=== PATIENT | male | born 1980 | race Caucasian/White ===

== ENCOUNTER 2019-09-28 15:46 | Emergency (ER) | payer BC ==
[2019-09-28 15:52] VITALS: TEMP 97.9
[2019-09-28] MEDS ORDERED: SODIUM CHLORIDE 0.9% 500 ML 500 ML IV STA (16:16)
[2019-09-28] MEDS ORDERED: ASPIRIN 81 MG PO STA (16:16)
[2019-09-28 16:37] LABS: Basophils # (A) 0.1 k/uL (0-0.2); Basophils % (A) 1 %; Eosinophils # (A) 0.1 k/uL (0-0.7); Eosinophils % (A) 2 %; HCT 46.4 % (39.0-53.0); HGB 15.8 gm/dL (13.0-17.5); Lymphocytes # (A) 2.3 k/uL (1.0-4.8); Lymphocytes % (A) 27 %; MCH 28.7 pg (25.0-35.0); MCV 84.7 fL (80.0-100.0); Mean Platelet Volume 8.8; Monocytes # (A) 0.5 k/uL (0-1.0); Monocytes % (A) 6 %; Neutrophils # (A) 5.1 k/uL (1.3-7.7); Neutrophils % (A) 61 %; Platelet Count 189 k/uL (150-450); RBC 5.48 m/uL (4.30-5.90); RDW 12.6 % (11.5-15.5); WBC 8.3 k/uL (3.8-10.6)
--- NOTE | 2019-09-28 16:42 | CT ---
EXAMINATION TYPE: CT brain wo con DATE OF EXAM: 09/28/2019 COMPARISON: 10/24/2013 HISTORY: 38-year-old male weakness, hypertension, history of brain shunt TECHNIQUE: Examination was done in axial plane without intravenous contrast. Coronal and sagittal r econstructions performed. CT DLP: 1142.4 mGycm Automated exposure control for dose reduction was used. FINDINGS: There is no evidence of acute intracranial hemorrhage, acute ischemic changes, mass, mass-effect, or extra-axial fluid collection. There is no effacement of cerebral sulci or basal subarachnoid cister ns. There is no hydrocephalus. There is no midline shift. Mendoza-white matter distinction is preserv ed. Right frontal sagrario hole related to prior shunt catheter with underlying encephalomalacia along the fr ontal horn of the right lateral ventricle. Some linear calcifications along the left lateral wall of the third ventricle are unchanged from 2014 . Rightward nasal septal deviation. Visualized paranasal sinuses and mastoid air cells are well-pneumat ized. Orbits and globes are intact. IMPRESSION: 1. 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 No indwelling catheter remains but there is some residual encephalomalacia/gliosis along the catheter tract. 2. Ventricular system is relatively normal in caliber (improved from 2014). No acute intracranial abn ormality seen.
--- NOTE | 2019-09-28 16:43 | XR ---
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 Heart normal size. Aorta and pulmonary vasculature wi thin normal limits. No consolidation or pleural effusion. IMPRESSION: No acute cardiopulmonary process.
[2019-09-28 16:47] LABS: Partial Thromboplastin Time 25.4 sec (22.0-30.0); Prothrombin Time 10.8 sec (9.0-12.0)
[2019-09-28 16:58] LABS: ALT 27 U/L (4-49); AST 40 U/L (17-59); African American GFR (CKD) >90 (>60 ml/min/1.73 sqM); Alkaline Phosphatase 72 U/L (38-126); Anion Gap 10 mmol/L; Blood Urea Nitrogen 17 mg/dL (9-20); Calcium 9.6 mg/dL (8.4-10.2); Carbon Dioxide 25 mmol/L (22-30); Chloride 103 mmol/L (98-107); Glucose 78 mg/dL (74-99); Magnesium 2.1 mg/dL (1.6-2.3); Non-African American GFR(CKD) >90 (>60 ml/min/1.73 sqM); Sodium 138 mmol/L (137-145); Total Bilirubin 0.7 mg/dL (0.2-1.3); Total Protein 8.2 g/dL (6.3-8.2)
[2019-09-28 17:23] VITALS: RESP 18
--- NOTE | 2019-09-28 17:49 | ED ---
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 Denies any recent falls or trauma. Patient reports that he walks around at work, he feels as if when he is walking around his left side is more weak. He denies any facial droop or any changes in vision any headache. Denies any other complaints at this time. Systemic: Pt denies fatigue, fever/chills, rash. Pt denies weakness, night sweats, weight loss. Neuro: Pt denies headache, visual disturbances, syncope or pre-syncope. HEENT: Pt denies ocular discharge or irritation, otalgia, rhinorrhea, pharyngitis or notable lymphadenopathy. Cardiopulmonary: Pt denies chest pain, SOB, heart palpitations, dyspnea on exertion. Abdominal/GI: Pt denies abdominal pain, n/v/d. : Pt denies dysuria, burning w/ urination, frequency/urgency. Denies new onset urinary or bowel incontinence. MSK: Pt denies myalgia, loss of strength or function in extremities. - Related Data Home Medications Medication Instructions Recorded Confirmed Losartan [Cozaar] 12.5 mg PO HS 11/21/14 11/22/14 Previous Rx's Medication Instructions Recorded HYDROcodone/APAP 10-325MG [[place] 1 - 2 each PO Q6H PRN #60 tab 11/23/14 10-325] Verapamil Sr [Isoptin Sr] 360 mg PO DAILY tablet.er 11/23/14 Warfarin [Coumadin] 3 mg PO Q48H #10 tab 11/23/14 Allergies Allergy/AdvReac Type Severity Reaction Status Date / Time nafcillin Allergy Rash/Hives, Verified 09/28/19 15:52 itching vancomycin Allergy Rash/Hives, Verified 09/28/19 15:52 itching Review of Systems ROS Statement: Those systems with pertinent positive or pertinent negative responses have been documented in the HPI. ROS Other: All systems not noted in ROS Statement are negative. 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, had one seizure after first brain surgery-that was only time, ruptured left achilles on Tuesday-in [employer] History of Any Multi-Drug Resistant Organisms: None Reported Past Surgical History: Appendectomy Additional Past Surgical History / Comment(s): brain surgery to remove tumor, had shunt, multiple shunt revisions & then removal of shunt w/ventriculostomy 2013, SX- LT ACHILLES TENDON REPAIR Past Anesthesia/Blood Transfusion Reactions: No Reported Reaction Past Psychological History: No Psychological Hx Reported Smoking Status: Never smoker Past Alcohol Use History: None Reported Past Drug Use History: None Reported - Past Family History Mother Family Medical History: No Reported History General Exam - General Exam Comments Initial Comments: Constitutional: NAD, AOX3, Pt has pleasant affect. HEENT: NC/AT, trachea midline, neck supple, no lymphadenopathy. Posterior pharynx non erythematous, without exudates. External ears appear normal, without discharge. Mucous membranes moist. Eyes PERRLA, EOM intact. There is no scleral icterus. No pallor noted. Cardiopulmonary: RRR, no murmurs, rubs or gallops, no JVD noted. Lungs CTAB in anterior and posterior wright. No peripheral edema. Abdominal exam: Abdomen soft and non-distended. Abdomen non-tender to palpation in all 4 quadrants. Bowel sounds active in LLQ. No hepatosplenomegaly. No ecchymosis Neuro: CN II-XII intact. No nuchal rigidity. No raccon eyes, no vigil sign, no hemotympanum. No cervical spinal tenderness. Left upper and left lower extremity are 4/5 strength, right upper and lower extremities are 5 out of 5 strength. Sensation, is intact. NIH 0. MSK: No posterior calf tenderness bilaterally, homans sign negative bilaterally. Posterior tibialis and radial pulse +2 bilaterally. Sensation intact in upper and lower extremities. Full active ROM in upper and lower extremities, 5/5 stregnth. 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 Denies any recent falls or trauma. Patient reports that he walks around at work, he feels as if when he is walking around his left side is more weak. He denies any facial droop or any changes in vision any headache. Denies any other complaints at this time. Patient vital signs are stable, afebrile. Physical exam displayed: CN II-XII intact. No nuchal rigidity. No raccon eyes, no vigil sign, no hemotympanum. No cervical spinal tenderness. Left upper and left lower extremity are 4-5 strength, right upper and lower extremities are 5 out of 5 strength. Sensation, is intact. NIH 0. Laboratory investigations are non- impressive. Troponin negative. EKG is nonischemic. Chest x-ray displayed no acute cardiopulmonary process. 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 No acute intracranial abnormality. Symptoms of ongoing for greater than 48 hours. Patient was administered aspirin. Will be transferred to [facility] for neurology evaluation. Accepting physician Dr. Justin. Case discussed in depth with Dr. Marroquin. - Lab Data Result diagrams: 09/28/19 16:05 09/28/19 16:05 Lab Results 09/28/19 09/28/19 09/28/19 Range/Units 16:05 16:05 16:05 WBC 8.3 (3.8-10.6) k/uL RBC 5.48 (4.30-5.90) m/uL Hgb 15.8 (13.0-17.5) gm/dL Hct 46.4 (39.0-53.0) % MCV 84.7 (80.0-100.0) fL MCH 28.7 (25.0-35.0) pg MCHC 34.0 (31.0-37.0) g/dL RDW 12.6 (11.5-15.5) % Plt Count 189 (150-450) k/uL Neutrophils % 61 % Lymphocytes % 27 % Monocytes % 6 % Eosinophils % 2 % Basophils % 1 % Neutrophils # 5.1 (1.3-7.7) k/uL Lymphocytes # 2.3 (1.0-4.8) k/uL Monocytes # 0.5 (0-1.0) k/uL Eosinophils # 0.1 (0-0.7) k/uL Basophils # 0.1 (0-0.2) k/uL PT 10.8 (9.0-12.0) sec INR 1.0 (<1.2) APTT 25.4 (22.0-30.0) sec Sodium 138 (137-145) mmol/L Potassium 4.0 (3.5-5.1) mmol/L Chloride 103 (98-107) mmol/L Carbon Dioxide 25 (22-30) mmol/L Anion Gap 10 mmol/L BUN 17 (9-20) mg/dL Creatinine 0.89 (0.66-1.25) mg/dL Est GFR (CKD-EPI)AfAm >90 (>60 ml/min/1.73 sqM) Est GFR (CKD-EPI)NonAf >90 (>60 ml/min/1.73 sqM) Glucose 78 (74-99) mg/dL Calcium 9.6 (8.4-10.2) mg/dL Magnesium 2.1 (1.6-2.3) mg/dL Total Bilirubin 0.7 (0.2-1.3) mg/dL AST 40 (17-59) U/L ALT 27 (4-49) U/L Alkaline Phosphatase 72 (38-126) U/L Troponin I (0.000-0.034) ng/mL Total Protein 8.2 (6.3-8.2) g/dL Albumin 5.0 (3.5-5.0) g/dL 09/28/19 Range/Units 16:05 WBC (3.8-10.6) k/uL RBC (4.30-5.90) m/uL Hgb (13.0-17.5) gm/dL Hct (39.0-53.0) % MCV (80.0-100.0) fL MCH (25.0-35.0) pg MCHC (31.0-37.0) g/dL RDW (11.5-15.5) % Plt Count (150-450) k/uL Neutrophils % % Lymphocytes % % Monocytes % % Eosinophils % % Basophils % % Neutrophils # (1.3-7.7) k/uL Lymphocytes # (1.0-4.8) k/uL Monocytes # (0-1.0) k/uL Eosinophils # (0-0.7) k/uL Basophils # (0-0.2) k/uL PT (9.0-12.0) sec INR (<1.2) APTT (22.0-30.0) sec Sodium (137-145) mmol/L Potassium (3.5-5.1) mmol/L Chloride (98-107) mmol/L Carbon Dioxide (22-30) mmol/L Anion Gap mmol/L BUN (9-20) mg/dL Creatinine (0.66-1.25) mg/dL Est GFR (CKD-EPI)AfAm (>60 ml/min/1.73 sqM) Est GFR (CKD-EPI)NonAf (>60 ml/min/1.73 sqM) Glucose (74-99) mg/dL Calcium (8.4-10.2) mg/dL Magnesium (1.6-2.3) mg/dL Total Bilirubin (0.2-1.3) mg/dL AST (17-59) U/L ALT (4-49) U/L Alkaline Phosphatase (38-126) U/L Troponin I <0.012 (0.000-0.034) ng/mL Total Protein (6.3-8.2) g/dL Albumin (3.5-5.0) g/dL - EKG Data -: EKG Interpreted by Me (and Dr. Marroquin) EKG Comments: Ventricular rate 64, TN interval 148, QRS 96, QT/QTc 400/412. Normal sinus rhy thm, normal EKG. No concern for acute ischemia at this time. Disposition Clinical Impression: Unilateral weakness, Chest pain Disposition: OTHER INSTITUTION NOT DEFINED Condition: Fair Is patient prescribed a controlled substance at d/c from ED?: No Referrals: Mackenzie Estes DO [Primary Care Provider] - 1-2 days - Out of Hospital Transfer - Req. Specs Out of Hospital Transfer - Requested Specifics: Other Emergency Center ([facility])
[2019-09-28 18:23] VITALS: BP 134/94; PULSE 64
== END 2019-09-28 19:20 | disposition other institution (70) ==
LOC: EC 15:46
DX: R07.9 Chest pain, unspecified (principal); R53.1 Weakness; R20.2 Paresthesia of skin; I10 Essential (primary) hypertension; Z79.899 Other long term (current) drug therapy; Z88.1 Allergy status to other antibiotic agents
CPT/HCPCS: 36415; 70450; 71046; 80053; 83735; 84484; 85025; 85610; 85730; 93005; 96360; 96361; 99285

== ENCOUNTER 2020-08-04 07:53 | Day surgery (SDC) | payer BC ==
[2020-08-04] MEDS ORDERED: diazePAM 5 MG TAB PO STA (08:37)
[2020-08-04 08:56] VITALS: RESP 16; TEMP 98
--- NOTE | 2020-08-04 10:06 | FL ---
EXAMINATION TYPE: FL guided lumbar puncture LP DATE OF EXAM: 08/04/2020 COMPARISON: NONE HISTORY: G40.909 R51.9 Informed consent was obtained and all the patient's questions were answered. The L4-5 level was local ized fluoroscopically. The standard sterile technique. FINDINGS: 40 sec fluoro time. with Dr Vogel. 4 vials with 1 cc in each. Opening pressure of 12 mmH g. The patient tolerated the procedure well and left the department in stable condition. IMPRESSION: As Above.
[2020-08-04 13:18] LABS: Appearance,CSF Clear; CSF Tube Number 1
[2020-08-04 13:19] LABS: Nucleated Cells, CSF 1 u/L (0-5); Red Blood Cell,CSF 0 u/L (0-10)
[2020-08-04 13:22] VITALS: BP 121/65; PULSE 57
== END 2020-08-04 13:27 | disposition home or self-care (01) ==
LOC: RADPROMAIN 07:53
PROVIDERS: ATTEND Family Medicine
DX: R51.9 Headache, unspecified (principal); Q85.9 Phakomatosis, unspecified; G40.109 Localization-related (focal) (partial) symptomatic epilepsy and epileptic syndromes with simple partial seizures, not intractable, without status epilepticus; I10 Essential (primary) hypertension; Z79.891 Long term (current) use of opiate analgesic; Z79.899 Other long term (current) drug therapy; Z88.1 Allergy status to other antibiotic agents
CPT/HCPCS: 62328; 87070; 87205; 88108; 89050

== ENCOUNTER 2020-08-07 17:51 | Emergency (ER) | payer BC ==
[2020-08-07 18:06] VITALS: TEMP 97.9
[2020-08-07] MEDS ORDERED: KETOROLAC 15 MG/ML 1 ML VIAL IVP STA (18:45)
[2020-08-07] MEDS ORDERED: METOCLOPRAMIDE 5 MG/ML 2 ML VIAL IVP STA (18:45)
[2020-08-07] MEDS ORDERED: diphenhydrAMINE 50 MG/ML 1 ML VIAL IVP STA (18:45)
[2020-08-07] MEDS ORDERED: SODIUM CHLORIDE 0.9% 1,000 ML IV STA (18:45)
[2020-08-07] MEDS ORDERED: CAFFEINE-SODIUM BENZOATE 500 MG in SODIUM CHLORIDE 0.9% 1,000 ML IVPB ONE (19:00)
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
[2020-08-07 20:54] VITALS: BP 137/85; PULSE 80; RESP 16
== END 2020-08-07 20:54 | disposition home or self-care (01) ==
LOC: EC 17:51
DX: R51.9 Headache, unspecified (principal); I10 Essential (primary) hypertension; G40.909 Epilepsy, unspecified, not intractable, without status epilepticus; Z79.899 Other long term (current) drug therapy; Z88.1 Allergy status to other antibiotic agents; Z88.0 Allergy status to penicillin
CPT/HCPCS: 99283; 96365; 96366 ×6; 96375 ×3; 96361; J1200; J2765; J1885

== ENCOUNTER 2020-08-09 22:25 | Emergency (ER) | payer BC ==
[2020-08-09] MEDS ORDERED: KETOROLAC 15 MG/ML 1 ML VIAL IVP STA (23:01)
[2020-08-09] MEDS ORDERED: PROCHLORPERAZINE INJ 10 MG/2 ML VIAL IVP STA (23:01)
[2020-08-09] MEDS ORDERED: SODIUM CHLORIDE 0.9% 1,000 ML IV STA (23:01)
[2020-08-09] MEDS ORDERED: diphenhydrAMINE 50 MG/ML 1 ML VIAL IVP STA (23:01)
[2020-08-09] MEDS ORDERED: LORazepam 2 MG/ML INJ IV STA (23:01)
[2020-08-09] MEDS ORDERED: CAFFEINE-SODIUM BENZOATE 1,000 MG in SODIUM CHLORIDE 0.9% 1,000 ML IVPB ONE (23:01)
[2020-08-09] MEDS ORDERED: HYDROmorphone 1 MG/ML 1 ML SYRINGE IVP STA (23:01)
--- NOTE | 2020-08-09 23:02 | ED ---
Recheck HPI - General Chief Complaint: Headache Stated Complaint: Headache Time Seen by Provider: 08/09/20 22:32 Source: patient, family, RN notes reviewed, old records reviewed Mode of arrival: ambulatory Limitations: no limitations - History of Present Illness Initial Comments: This is a 39-year-old male DF for evaluation patient Dese for evaluation regards to headache post-LP headache with history of chronic headaches. Patient had opening pressure LP done on Tuesday, had increasing headache and there is today. She presents for recurrent evaluation of persistent headache. No new trauma. Mild nausea no vomiting headache is worsened standing worse when sitting better with laying down flat. Patient has otherwise no complaints - Related Data Home Medications Medication Instructions Recorded Confirmed Zonisamide [Zonegran] 100 mg PO HS 07/21/20 08/07/20 amLODIPine BESYLATE 10 mg PO HS 07/21/20 08/07/20 HYDROcodone/APAP 5-325MG [[place] 1 tab PO BID PRN 07/25/20 08/07/20 5-325] OXcarbazepine [Trileptal] 150 mg PO DAILY 07/25/20 08/07/20 SUMAtriptan SUCCINATE [Imitrex] 100 mg PO DAILY PRN 08/07/20 08/07/20 Allergies Allergy/AdvReac Type Severity Reaction Status Date / Time nafcillin Allergy Rash/Hives, Verified 08/09/20 22:33 itching, seizures vancomycin Allergy Rash/Hives, Verified 08/09/20 22:33 itching, seizures Review of Systems ROS Statement: Those systems with pertinent positive or pertinent negative responses have been documented in the HPI. ROS Other: All systems not noted in ROS Statement are negative. 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, had one seizure after first brain surgery-that was only time, ruptured left achilles, seizure disorder--focal epilepsy, headaches History of Any Multi-Drug Resistant Organisms: None Reported Past Surgical History: Appendectomy Additional Past Surgical History / Comment(s): brain surgery to remove tumor, had shunt, multiple shunt revisions & then removal of shunt w/ventriculostomy 2013, SX- LT ACHILLES TENDON REPAIR, Past Anesthesia/Blood Transfusion Reactions: No Reported Reaction Past Psychological History: No Psychological Hx Reported Smoking Status: Never smoker Past Alcohol Use History: None Reported Past Drug Use History: None Reported - Past Family History Mother Family Medical History: No Reported History General Exam Limitations: no limitations General appearance: alert, in no apparent distress Head exam: Present: atraumatic, normocephalic, normal inspection Eye exam: Present: normal appearance, PERRL, EOMI. Absent: scleral icterus, conjunctival injection, periorbital swelling ENT exam: Present: normal exam, mucous membranes moist Neck exam: Present: normal inspection. Absent: tenderness, meningismus, lymphadenopathy Respiratory exam: Present: normal lung sounds bilaterally. Absent: respiratory distress, wheezes, rales, rhonchi, stridor Cardiovascular Exam: Present: regular rate, normal rhythm, normal heart sounds. Absent: systolic murmur, diastolic murmur, rubs, gallop, clicks GI/Abdominal exam: Present: soft, normal bowel sounds. Absent: distended, tenderness, guarding, rebound, rigid Extremities exam: Present: normal inspection, full ROM, normal capillary refill. Absent: tenderness, pedal edema, joint swelling, calf tenderness Back exam: Present: normal inspection Neurological exam: Present: alert, oriented X3, CN II-XII intact Psychiatric exam: Present: normal affect, normal mood Skin exam: Present: warm, dry, intact, normal color. Absent: rash Course Vital Signs 08/09/20 08/10/20 22:31 00:26 Temperature 98.5 F Pulse Rate 62 57 L Respiratory 18 16 Rate Blood Pressure 165/92 135/91 O2 Sat by Pulse 98 96 Oximetry - Reevaluation(s) Reevaluation #1: 08/10/20 01:42 Medical record is reviewed including prior ER visit Reevaluation #2: 08/10/20 01:42 Patient feeling better here in the emergency department. - Consultations Consultation #1: (Anesthesiologist on-call, no efficacy for blood patch at this time, symptom management Medical Decision Making - Medical Decision Making 39 male with postDural headache on top of chronic LUNA. Patient given symptom management here in the ER and can be discharged home Disposition Clinical Impression: Headache, Headache following lumbar puncture Disposition: HOME SELF-CARE Condition: Good Instructions (If sedation given, give patient instructions): Acute Headache (ED) Is patient prescribed a controlled substance at d/c from ED?: No Referrals: Meera,Mackenzie, DO [Primary Care Provider] - 1-2 days
[2020-08-10] MEDS ORDERED: HYDROmorphone 1 MG/ML 1 ML SYRINGE IVP STA (01:43)
[2020-08-10] MEDS ORDERED: ONDANSETRON 4 MG ODT STARTER PACK 2 TAB BTL PO STA (01:44)
[2020-08-10] MEDS ORDERED: traMADol 50 MG STARTER PACK 3 TAB BTL PO STA (01:44)
[2020-08-10] MEDS ORDERED: ACET/COD 300 MG/30 MG STARTER PACK 6 TAB BTL PO STA (01:44)
[2020-08-10] MEDS ORDERED: IBUPROFEN 600 MG STARTER PACK 4 TAB BTL PO STA (01:44)
[2020-08-10 02:27] VITALS: BP 138/97; PULSE 61; RESP 18; TEMP 97.9
== END 2020-08-10 02:27 | disposition home or self-care (01) ==
LOC: EC 22:25
DX: G97.1 Other reaction to spinal and lumbar puncture (principal); I10 Essential (primary) hypertension; G40.909 Epilepsy, unspecified, not intractable, without status epilepticus; Z79.899 Other long term (current) drug therapy; Z90.49 Acquired absence of other specified parts of digestive tract; Z88.1 Allergy status to other antibiotic agents; Y84.4 Aspiration of fluid as the cause of abnormal reaction of the patient, or of later complication, without mention of misadventure at the time of the procedure
CPT/HCPCS: 99284; 96365; 96366; 96375 ×5; 96376; J2060; J1200; J0780; J1170 ×2; J1885; S0119